=== PATIENT | male | born 1995 | race Two or more races ===

== ENCOUNTER 2022-09-26 12:31 | Emergency (ER) | payer MEDICAID, SELFPAY ==
[2022-09-26 13:40] VITALS: BP 153/98; PULSE 83; RESP 18; TEMP 36.7; O2SAT 98; BMI 26.5
--- NOTE | 2022-09-26 14:12 | EXP.UTC ---
Discharge Plan Disposition Patient Disposition: Home, Self-Care Condition: Good Prescriptions Prescriptions: New benzonatate 100 mg capsule 100 mg PO TID PRN (Reason: cough) Qty: 30 0RF fluticasone propionate [Flonase Allergy Relief] 50 mcg/actuation spray,suspension 1 - 2 spray intranasal DAILY Qty: 16 0RF Rx Instructions: administer into each nostril azithromycin [Zithromax Z-Jona] 250 mg tablet See Rx Instructions .ROUTE .COMPLEX 5 Days Qty: 6 0RF Rx Instructions: For 250 mg dose pack: take 500 mg today (day 1), then 250 mg for 4 days (days 2-5) Referrals Follow up/Referrals: Yen Pearson APRN [Primary Care Provider] - See instructions Activity Restrictions/Add. Instructions Additional Instructions/Restrictions: *Monitor Temp, Over the counter Motrin or Tylenol as directed/as needed Tylenol every 4 hours and Motrin every 6 hours (as long as your family doctor has told you that you can take it) for fever or pain. and straight to ER if unable to lower temp less than 101.0 after medication given *Warm salt water gargles may help to soothe the throat *Throat Lozenges? *Warm fluids like tea with honey may help to soothe the throat? *Sleep elevated *Humidifier/Vaporizer *Flonase 2 sprays in each nostril daily but be aware that it may take 2-3 days before you notice improvement Take medication as prescribed Follow up IMMEDIATELY for new or worsening symptoms or no Noticeable improvement over the next 48-72 hours. 911 for difficulty breathing or swallowing Clinical Impressions Clinical Impression: Sinusitis Stand Alone Forms Stand Alone Forms: Work/School Release Instructions Patient Instructions: Sinusitis, DI for Sinusitis Discharge ED Provider: Tasha Cisse [facility] General Stated complaint: Cough, fever Mode of Arrival: Ambulatory Source of Information: Patient Limitations: No Limitations Time Seen by Provider: 09/26/22 14:12 Description of Symptoms (Recalled from Triage Doc. by RN): cough, and low grade fever HEENT Symptoms (Recalled from RN notes): Yes Resp Symptoms (Recalled from RN notes): No Skin Symptoms (Recalled from RN notes): No MS Symptoms (Recalled from RN notes): No Functional Status (Recalled from RN notes): n/a History of Present Illness Provider Complaint: Patient states that for about a week having sinus pain and pressure, cough and low grade fever on and off with headache States that today wasnt feeling any better so he came in Related Data Previous Rx's Medication Instructions Recorded azithromycin 250 mg tablet See Rx Instructions PO .COMPLEX 5 09/26/22 (Zithromax Z-Jona) days #6 tabs benzonatate 100 mg capsule 100 mg PO TID PRN cough #30 caps 09/26/22 fluticasone propionate 50 1 - 2 spray intranasal DAILY #16 09/26/22 mcg/actuation nasal grams spray,suspension (Flonase Allergy Relief) Allergies Allergy/AdvReac Type Severity Reaction Status Date / Time No Known Allergies Allergy Verified 09/26/22 13:57 Worker's Comp Is this a Worker's Comp case?: No PFSH [facility] Disclaimer: The information contained in this section may have been updated after the patient was seen, as this information can be updated by other users. Medical History (Updated 09/26/22 @ 14:15 by Tasha Cisse APRN) Diabetes type 2, controlled Social History Smoking Status: Never smoker alcohol intake: never current occupational status: employed Travel in the last 8 weeks: None ROS Obtained: Yes All systems reviewed & no additional complaints except as documented and Yes Systems reviewed as appropriate & no additional complaints except as documented Constitutional Constitutional: Reports system reviewed and no additional complaints, except as documented, Reports as per HPI, Reports fever(s) and Reports headache(s) ENT Ears, Nose, Mouth, and Throat: Reports system reviewed and no additional complaints, except as document
[2022-09-26 14:34] VITALS: BP 153/98; PULSE 83; RESP 18; TEMP 36.7; O2SAT 98
== END 2022-09-26 14:33 | disposition home or self-care (01) ==
PROVIDERS: Emergency Provider Nurse Practitioner; PCP Nurse Practitioner
DX: J01.90 Acute sinusitis, unspecified (principal); R50.9 Fever, unspecified; R05.9 Cough, unspecified; R51.9 Headache, unspecified; E11.9 Type 2 diabetes mellitus without complications
CPT/HCPCS: 99204; 99212; G0463